=== PATIENT | female | born 1965 | race Caucasian/White ===

== ENCOUNTER 2018-01-13 11:38 | Emergency (ER) | payer SELFPAY ==
[~2018-01-13] VITALS: Ht 144.8 cm; Wt 49.0 kg
[2018-01-13 11:41] VITALS: BP 136/73; PULSE 101; RESP 16; TEMP 98.3; O2SAT 99
[2018-01-13] MEDS ORDERED: SODIUM CHLORIDE 0.9% FLUSH 10 ML FLUSH IVF PRN (12:00)
[2018-01-13] MEDS ORDERED: SODIUM CHLOR 0.9% 1000 ML INJ 1,000 ML IV ONE ×2 (12:00→13:30)
[2018-01-13] MEDS ORDERED: LANTUS2P SQ (12:06)
[2018-01-13] MEDS ORDERED: ENOX100P SQ (12:06)
[2018-01-13] MEDS ORDERED: NOVOLOGP2 SQ (12:06)
[2018-01-13] MEDS ORDERED: ALPR.5 PO (12:06)
[2018-01-13 12:46] LABS: BILIRUBIN, URINE NEG (NEG); BLOOD, URINE NEG (NEG); GLUCOSE,URINE 1000 OR GREATER mg/dL (NEG); KETONE, URINE 80 OR GREATER mg/dL (NEG); NITRITE,URINE POS (NEG); PH, URINE 5.5 (5.0-8.5); URINE COLOR YELLOW (YELLW/STRAW); URINE LEUKOCYTE ESTERASE NEG (NEG)
[2018-01-13] MEDS ORDERED: GABA300C5 PO (12:46)
--- NOTE | 2018-01-13 12:47 | PD ---
HPI Chief Complaint: Respiratory Symptoms Time Seen by Provider: 11:48 Travel History International Travel<30 days: No Contact w/Intl Traveler<30days: No Traveled to known affect area: No History of Present Illness HPI Patient is a 52 year old female, with history of PE, Diabetes, and pancreatic cancer, who comes in complaining of bilateral flank pain, cough/congestion, DKA. She says she has noticed her sugar has been elevated all week and she has not been able to control it. She says she feels like she is in DKA. She says she has pain to both flanks also for the past week and is concerned for a kidney issue. She says she is urinating more often, but denies any burning with urination. She denies fever or chills. She is on lovenox and reports compliance with her medications. Severity is moderate. 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) Family History Family Myocardial Infarction: Yes Social History Alcohol Use: Yes (very rare) Tobacco Use: Yes (2 cigs a week) Substance Use: No (denies) Allergies-Medications (Allergen,Severity, Reaction): Coded Allergies: Penicillins (Verified Allergy, Unknown, 01/13/18) Sulfa (Sulfonamide Antibiotics) (Verified Allergy, Unknown, 01/13/18) acetaminophen (Verified Allergy, Unknown, 01/13/18) haloperidol (Verified Allergy, Unknown, 01/13/18) Reported Meds & Prescriptions Reported Meds & Active Scripts Active Reported Gabapentin 300 Mg Cap 300 Mg PO QID PRN Xanax (Alprazolam) 0.5 Mg Tab 0.5 Mg PO Q8H PRN Lovenox Inj (Enoxaparin Sodium) 100 Mg/Ml Syr 100 Mg SQ BID Novolog Inj (Insulin Aspart) 1,000 Unit/10 Ml Vial 0 SQ DIRECTED Sliding Scale as directed. Lantus Inj (Insulin Glargine) 1,000 Unit/10 Ml Vial 20 Units SQ DAILY Review of Systems Except as stated in HPI: all other systems reviewed are Neg General / Constitutional: No: Fever, Chills HENT: No: Headaches, Lightheadedness Cardiovascular: No: Chest Pain or Discomfort Respiratory: Positive: Cough, Shortness of Breath Genitourinary: Positive: Frequency, No: Dysuria Musculoskeletal: No: Myalgias, Edema Skin: No Rash, No Change in Pigmentation Neurologic: No: Weakness, Dizziness Physical Exam Narrative GENERAL: Awake and alert, in no acute distress. SKIN: Focused skin assessment warm/dry. HEAD: Atraumatic. Normocephalic. EYES: Pupils equal and round. No scleral icterus. ENT: Mucous membranes pink and moist. NECK: Trachea midline. No JVD. CARDIOVASCULAR: Regular rate and rhythm. No murmur appreciated. RESPIRATORY: No accessory muscle use. Clear to auscultation. Breath sounds equal bilaterally. GASTROINTESTINAL: Abdomen soft, non-tender, nondistended. MUSCULOSKELETAL: No obvious deformities. No clubbing. No cyanosis. No edema. NEUROLOGICAL: Awake and alert. No obvious cranial nerve deficits. Motor grossly within normal limits. Normal speech. PSYCHIATRIC: Appropriate mood and affect; insight and judgment normal. Data Data Last Documented VS Vital Signs Date Time Temp Pulse Resp B/P (MAP) Pulse Ox O2 Delivery O2 Flow Rate FiO2 01/13/18 13:18 99 Room Air 01/13/18 12:51 2.00 01/13/18 11:41 98.3 101 16 136/73 (94) Orders Orders Complete Blood Count With Diff (01/13/18 11:57) Basic Metabolic Panel (Bmp) (01/13/18 11:57) Act Partial Throm Time (Ptt) (01/13/18 11:57) Prothrombin Time / Inr (Pt) (01/13/18 11:57) Troponin I (01/13/18 11:57) Iv Access Insert/Monitor (01/13/18 11:57) Ecg Monitoring (01/13/18 11:57) Oximetry (01/13/18 11:57) Oxygen Administration (01/13/18 11:57) Ct Pulmonary Angiogram (01/13/18 11:57) Sodium Chloride 0.9% Flush (Ns Flush) (01/13/18 12:00) Urinalysis - C+S If Indicated (01/13/18 11:57) Ct Abd/Pel W/O Iv Contrast (01/13/18 ) Hepatic Functional Panel (01/13/18 11:57) Beta Hydroxybutyrate (Acetone) (01/13/18 11:57) Sodium Chlor 0.9% 1000 Ml Inj (Ns 1000 M (01/13/18 12:00) Morphine Inj (Morphine Inj) (01/13/18 13:00) Urine Culture (01/13/18 12:30) Levofloxacin 500 Mg Premix Inj (Levaquin (01/13/18 13:30) Insulin Human Regular Inj (Novolin R Inj (01/13/18 13:30) Sodium Chlor 0.9% 1000 Ml Inj (Ns 1000 M (01/13/18 13:30) Potassium Chloride (Kcl) (01/13/18 13:30) Iohexol 350 Inj (Omnipaque 350 Inj) (01/13/18 14:05) Ketorolac Inj (Toradol Inj) (01/13/18 14:30) Labs Laboratory Tests Test 01/13/18 12:30 White Blood Count 14.6 TH/MM3 Red Blood Count 4.68 MIL/MM3 Hemoglobin 14.0 GM/DL Hematocrit 41.9 % Mean Corpuscular Volume 89.6 FL Mean Corpuscular Hemoglobin 30.0 PG Mean Corpuscular Hemoglobin Concent 33.4 % Red Cell Distribution Width 12.5 % Platelet Count 272 TH/MM3 Mean Platelet Volume 9.8 FL Neutrophils (%) (Auto) 74.6 % Lymphocytes (%) (Auto) 14.1 % Monocytes (%) (Auto) 8.1 % Eosinophils (%) (Auto) 1.0 % Basophils (%) (Auto) 2.2 % Neutrophils # (Auto) 10.9 TH/MM3 Lymphocytes # (Auto) 2.1 TH/MM3 Monocytes # (Auto) 1.2 TH/MM3 Eosinophils # (Auto) 0.1 TH/MM3 Basophils # (Auto) 0.3 TH/MM3 CBC Comment DIFF FINAL Differential Comment Prothrombin Time 10.9 SEC Prothromb Time International Ratio 1.1 RATIO Activated Partial Thromboplast Time 33.9 SEC Urine Collection Type CLEAN CATCH Urine Color YELLOW Urine Turbidity CLEAR Urine pH 5.5 Urine Specific [place] 1.015 Urine Protein NEG mg/dL Urine Glucose (UA) 1000 OR GREATER mg/dL Urine Ketones 80 OR GREATER mg/dL Urine Occult Blood NEG Urine Nitrite POS Urine Bilirubin NEG Urine Urobilinogen 0.2 MG/DL Urine Leukocyte Esterase NEG Urine WBC 0-2 /hpf Urine Squamous Epithelial Cells 0-5 /hpf Urine Bacteria MOD /hpf Microscopic Urinalysis Comment CULTURE INDICATED Urine Collection Time 12:30 Blood Urea Nitrogen 11 MG/DL Creatinine 0.75 MG/DL Random Glucose 407 MG/DL Total Protein 7.2 GM/DL Albumin 3.8 GM/DL Calcium Level 8.7 MG/DL Alkaline Phosphatase 82 U/L Aspartate Amino Transf (AST/SGOT) 32 U/L Alanine Aminotransferase (ALT/SGPT) 37 U/L Total Bilirubin 0.7 MG/DL Direct Bilirubin 0.2 MG/DL Sodium Level 134 MEQ/L Potassium Level 3.6 MEQ/L Chloride Level 100 MEQ/L Carbon Dioxide Level 25.3 MEQ/L Anion Gap 9 MEQ/L Estimat Glomerular Filtration Rate 82 ML/MIN Indirect Bilirubin 0.5 MG/DL Troponin I LESS THAN 0.02 NG/ML B-Hydroxybutyrate 1.36 MMOL/L [facility] Medical Decision Making Medical Screen Exam Complete: Yes Emergency Medical Condition: Yes Medical Record Reviewed: Yes Differential Diagnosis hyperglycemia vs DKA vs dehydration vs UTI vs renal stone vs pneumonia vs PE Narrative Course Patient is a 52 year old female who comes in complaining of back pain and high sugars. Her [id number] was accessed and labs obtained. Labs show a glucose of 407, however, anion gap is 9, suggesting no evidence of DKA. UA is positive for UTI. CT abd/pelvis shows no evidence of renal stone. CTA chest shows no evidence of PE. Last [address] Angiography 01/13/18 1157 Signed Impressions: Service Date/Time: Saturday, January 13, 2018 13:49 - CONCLUSION: 1. No CT evidence for pulmonary artery embolism as questioned. 2. Minimal groundglass opacities at the lung bases consistent with atelectasis. Javed Jeffries MD Abdomen/Pelvis CT 01/13/18 0000 Signed Impressions: Service Date/Time: Saturday, January 13, 2018 13:39 - CONCLUSION: 1. No evidence of renal stones or hydronephrosis. 2. Multiple surgical procedures upper abdomen about the stomach, pancreas, and gallbladder. Gibran Mann MD Given IVF, insulin, pain medicines. Given a dose of Levaquin. Discharged with a prescription for Levaquin. Advised to follow up with her doctors. Advised to return to the ED as needed for any worsening symptoms. Diagnosis Primary Impression: UTI (urinary tract infection) Qualified Codes: N30.00 - Acute cystitis without hematuria Additional Impression: Hyperglycemia Patient Instructions: Diabetic Hyperglycemia (ED), General Instructions, Urinary Tract Infection in Women (ED) Additional Instructions: Drink plenty of water. Take all of your antibiotics. Follow-up with your doctors. Return to the ED as needed for any worsening symptoms. Scripts Ketorolac (Ketorolac) 10 Mg Tab 10 MG PO Q6HR Y for PAIN, #3 TAB 0 Refills Prov: Pat Sharp MD 01/13/18 Levofloxacin (Levaquin) 500 Mg Tablet 500 MG PO DAILY for Infection for 7 Days, #7 TAB 0 Refills Prov: Pat Sharp MD 01/13/18 Disposition: 01 DISCHARGE HOME Condition: Stable Pat Sharp MD January 13, 2018 12:47
[2018-01-13 12:53] LABS: AUTOMATED NEUTROPHIL # 10.9 TH/MM3 (1.8-7.7); BASOPHIL # 0.3 TH/MM3 (0-0.2); BASOPHIL % 2.2 % (0.0-2.0); EOSINOPHIL # 0.1 TH/MM3 (0-0.4); HEMATOCRIT 41.9 % (35.0-46.0); LYMPH % 14.1 % (9.0-44.0); LYMPHOCYTE # 2.1 TH/MM3 (1.0-4.8); MEAN CELL VOLUME 89.6 FL (80.0-100.0); MEAN CORPUSCULAR HGB CONC 33.4 % (32.0-36.0); MEAN PLATELET VOLUME 9.8 FL (7.0-11.0); MONO % 8.1 % (0.0-8.0); MONOCYTE # 1.2 TH/MM3 (0-0.9); NEUT % 74.6 % (16.0-70.0); PLATELET COUNT 272 TH/MM3 (150-450); RED BLOOD COUNT 4.68 MIL/MM3 (4.00-5.30); RED CELL DISTRIBUTION WIDTH 12.5 % (11.6-17.2); WHITE BLOOD COUNT 14.6 TH/MM3 (4.0-11.0)
[2018-01-13 12:54] LABS: CHLORIDE 100 MEQ/L (98-107); SODIUM (NA) 134 MEQ/L (136-145)
[2018-01-13 12:57] LABS: BACTERIA, URINE MOD /hpf; SQUAMOUS EPITHELIAL CELL URINE 0-5 /hpf (0-5); WBC, URINE 0-2 /hpf (0-5)
[2018-01-13 12:58] LABS: ALBUMIN 3.8 GM/DL (3.4-5.0); CALCIUM 8.7 MG/DL (8.5-10.1)
[2018-01-13 13:00] VITALS: BP 130/71; PULSE 92; RESP 20; O2SAT 99
[2018-01-13 13:00] LABS: INTERNATIONAL NORMALIZED RATIO 1.1 RATIO; PROTHROMBIN TIME - PATIENT 10.9 SEC (9.8-11.6)
[2018-01-13] MEDS ORDERED: MORPHINE SULFATE 4 MG/ML INJ IV PUSH ONE (13:00)
[2018-01-13 13:18] VITALS: O2SAT 99
[2018-01-13 13:25] LABS: ALKALINE PHOSPHATASE 82 U/L (45-117); ALT (GPT) 37 U/L (10-53); AST (GOT) 32 U/L (15-37); BICARBONATE 25.3 MEQ/L (21.0-32.0); BLOOD UREA NITROGEN 11 MG/DL (7-18); CREATININE 0.75 MG/DL (0.50-1.00); DIRECT BILIRUBIN ADULT 0.2 MG/DL (0.0-0.2); GLOMERULAR FILTRATION RATE 82 ML/MIN (>89); GLUCOSE,RANDOM 407 MG/DL (74-106); INDIRECT BILIRUBIN 0.5 MG/DL (0.0-0.8); TOTAL BILIRUBIN ADULT 0.7 MG/DL (0.2-1.0); TOTAL PROTEIN 7.2 GM/DL (6.4-8.2); TROPONIN I LESS THAN 0.02 NG/ML (0.02-0.05)
[2018-01-13] MEDS ORDERED: INSULIN HUMAN REGULAR 1,000 UNITS/10 ML VIAL IV PUSH ONE (13:30)
[2018-01-13] MEDS ORDERED: LEVOFLOXACIN 500 MG PREMIX INJ 100 ML IV ONE (13:30)
[2018-01-13] MEDS ORDERED: POTASSIUM CHLORIDE 10 MEQ CONTROLLED RELEASE TAB PO ONE (13:30)
--- NOTE | 2018-01-13 14:00 | RADRPT ---
EXAM DATE/TIME: 01/13/2018 13:39 [facility] COMPARISON: No previous studies available for comparison. INDICATIONS : Bilateral flank pain today. ORAL CONTRAST: No oral contrast ingested. RADIATION DOSE: 4.4 CTDIvol (mGy) MEDICAL HISTORY : Stroke. Carcinoma, pancreas. SURGICAL HISTORY : Cholecystectomy. spleen surgery, duodenum surgery, pancreas surgery ENCOUNTER: Initial ACUITY: 1 day PAIN SCALE: 7/10 LOCATION: Bilateral flank TECHNIQUE: Renal colic protocol. Volumetric scanning of the abdomen and pelvis was performed. Using automated exposure control and adjustment of the mA and/or kV according to patient size, radiation dose was kep t as low as reasonably achievable to obtain optimal diagnostic quality images. DICOM format image da ta is available electronically for review and comparison. FINDINGS: Right side: No calcified renal stones, ureteral stones, or evidence of hydronephrosis. Left side: No calcified renal stones, ureteral stones, or evidence of hydronephrosis. Bladder: No margins. No calcifications within the lumen. Other: Multiple hemoclips in the right upper quadrant. Cholecystectomy with biliary gas in the left lobe. No fluid in the anterior pararenal space stopped splenectomy. Enlarged uterus without calcifications. IVC filter. No evidence of free fluid. The v isualized lower lungs are clear. CONCLUSION: 1. No evidence of renal stones or hydronephrosis. 2. Multiple surgical procedures upper abdomen about the stomach, pancreas, and gallbladder. Gibran Mann MD on January 13, 2018 at 13:55 Board Certified Radiologist. This report was verified electronically.
[2018-01-13] MEDS ORDERED: IOHEXOL 350 MG/ML 10 ML VIAL (for RAD DIAG) IVCONTRAST ONE (14:05)
--- NOTE | 2018-01-13 14:14 | RADRPT ---
EXAM DATE/TIME: 01/13/2018 13:49 [facility] COMPARISON: No previous studies available for comparison. INDICATIONS : Shortness of breath today. IV CONTRAST: 51 cc Omnipaque 350 (iohexol) IV RADIATION DOSE: 5.58 CTDIvol (mGy) MEDICAL HISTORY : Stroke. Deep venous thrombosis. pulmonary embolism SURGICAL HISTORY : Cholecystectomy. spleen surgery, duodenum surgery, pancreas surgery ENCOUNTER: Initial ACUITY: 1 day PAIN SCALE: 0/10 LOCATION: Bilateral chest TECHNIQUE: Volumetric scanning of the chest was performed using a pulmonary embolism protocol MIP images were re constructed. Using automated exposure control and adjustment of the mA and/or kV according to patien t size, radiation dose was kept as low as reasonably achievable to obtain optimal diagnostic quality images. DICOM format image data is available electronically for review and comparison. Follow-up recommendations for detected pulmonary nodules are based at a minimum on nodule size and pa tient risk factors according to Fleischner Society Guidelines. FINDINGS: PULMONARY ARTERIES: No filling defects are seen in the pulmonary arteries through the segmental level. LUNGS: Minimal groundglass opacities at the lung bases. PLEURAE: There is no pleural thickening or pleural effusion. MEDIASTINUM: Right IJ [id number] in place. There is good visualization of the great vessels of the middle media stinum. No evidence of mediastinal or hilar adenopathy/mass. MUSCULOSKELETAL: Within normal limits for patient age. Bilateral decompressed breast augmentation. MISCELLANEOUS: His upper abdomen demonstrates extensive postsurgical features potentially of Whipple procedure. Mild pneumobilia within expected range. CONCLUSION: 1. No CT evidence for pulmonary artery embolism as questioned. 2. Minimal groundglass opacities at the lung bases consistent with atelectasis. Javed Jeffries MD on January 13, 2018 at 14:07 Board Certified Radiologist. This report was verified electronically.
[2018-01-13 14:25] VITALS: BP 108/69; PULSE 62; RESP 20; O2SAT 99
[2018-01-13] MEDS ORDERED: KETO10 PO (14:28)
[2018-01-13] MEDS ORDERED: LEVA500T33 PO (14:28)
[2018-01-13] MEDS ORDERED: KETOROLAC TROMETHAMINE 30 MG/ML (IVP) VIAL IV PUSH ONE (14:30)
== END 2018-01-13 16:27 | disposition home or self-care (01) ==
LOC: PHED 11:38
DX: N30.00 Acute cystitis without hematuria (principal); E11.65 Type 2 diabetes mellitus with hyperglycemia; B96.1 Klebsiella pneumoniae [K. pneumoniae] as the cause of diseases classified elsewhere; Z79.01 Long term (current) use of anticoagulants; Z86.73 Personal history of transient ischemic attack (TIA), and cerebral infarction without residual deficits
CPT/HCPCS: 71275; 74176; 80048; 80076; 81001; 82010; 84484; 85025; 85610; 85730; 87077; 87086; 87186; 96361; 96365; 96375; 99284; J1642; J1815; J1885; J1956; J2270; J7030; Q9967

== ENCOUNTER 2018-01-19 11:38 | Emergency (ER) | payer SELFPAY ==
[~2018-01-19] VITALS: Ht 144.8 cm; Wt 50.4 kg
[~2018-01-19 11:38] MED LIST: ALPR.5 PO; ENOX100P SQ; GABA300C5 PO; KETO10 PO; LANTUS2P SQ; LEVA500T33 PO; NOVOLOGP2 SQ
[2018-01-19 11:42] VITALS: BP 130/72; PULSE 86; RESP 18; TEMP 98.5; O2SAT 99
[2018-01-19] MEDS ORDERED: HYDROmorphone HCL PF 2 MG/ML VIAL IV PUSH ONE ×2 (12:15→13:45)
[2018-01-19] MEDS ORDERED: ONDANSETRON HCL 4 MG/2 ML VIAL IV PUSH ONE (12:15)
--- NOTE | 2018-01-19 12:19 | PD ---
HPI Chief Complaint: Pain: Acute or Chronic Time Seen by Provider: 12:02 Travel History International Travel<30 days: No Contact w/Intl Traveler<30days: No Traveled to known affect area: No History of Present Illness HPI This 52-year-old female is complaining of pain in her back. She is having pain in the back of the abdomen and thorax for over a week. Pain is aggravated by certain movements. She says it is quite severe. She was here for evaluation of this pain a few days ago. At that time she had a CT a of the chest which was negative for PE and a CT of the abdomen and pelvis which was also negative. Lab work showed a blood sugar of 400. She has a history of pancreatic cancer since 2003. 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 She does see an oncologist on a regular basis and had a recent PET scan. She was told recently that she had stage IV pancreatic cancer but she believes it stabilized. She has not had any chemotherapy for some time. When she was here the other day her urine did have bacteria and she was placed on Levaquin. Her urine from that visit has grown greater than 100,000 units of E. coli. It is sensitive to all antibiotics except ciprofloxacin. She is allergic to Bactrim. 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) Social History Alcohol Use: Yes (very rare) Tobacco Use: Yes (2 cigs a week) Substance Use: No (denies) Allergies-Medications (Allergen,Severity, Reaction): Coded Allergies: Penicillins (Verified Allergy, Unknown, 01/19/18) Sulfa (Sulfonamide Antibiotics) (Verified Allergy, Unknown, 01/19/18) acetaminophen (Verified Allergy, Unknown, 01/19/18) haloperidol (Verified Allergy, Unknown, 01/19/18) Reported Meds & Prescriptions Reported Meds & Active Scripts Active Levaquin (Levofloxacin) 500 Mg Tablet 500 Mg PO DAILY 7 Days Reported Gabapentin 300 Mg Cap 300 Mg PO QID PRN Xanax (Alprazolam) 0.5 Mg Tab 0.5 Mg PO Q8H PRN Lovenox Inj (Enoxaparin Sodium) 100 Mg/Ml Syr 100 Mg SQ BID Novolog Inj (Insulin Aspart) 1,000 Unit/10 Ml Vial 0 SQ DIRECTED Sliding Scale as directed. Lantus Inj (Insulin Glargine) 1,000 Unit/10 Ml Vial 20 Units SQ DAILY Review of Systems Except as stated in HPI: all other systems reviewed are Neg General / Constitutional: No: Fever, Chills Eyes: No: Diploplia, Blurred Vision HENT: No: Headaches Cardiovascular: No: Chest Pain or Discomfort, Palpitations Respiratory: No: Cough, Shortness of Breath Gastrointestinal: No: Diarrhea Genitourinary: Positive: Frequency Musculoskeletal: Positive: Myalgias, No: Arthralgias Skin: No Rash, No Itching Neurologic: No: Weakness, Dizziness Psychiatric: No: Anxiety Hematologic/Lymphatic: No: Easy Bruising Physical Exam Narrative GENERAL: Well-developed female SKIN: Focused skin assessment warm/dry. HEAD: Atraumatic. Normocephalic. EYES: Pupils equal and round. No scleral icterus. No injection or drainage. ENT: No nasal bleeding or discharge. Mucous membranes pink and moist. NECK: Trachea midline. No JVD. CARDIOVASCULAR: Regular rate and rhythm. No murmur appreciated. RESPIRATORY: No accessory muscle use. Clear to auscultation. Breath sounds equal bilaterally. GASTROINTESTINAL: Abdomen soft, non-tender, nondistended. Hepatic and splenic margins not palpable. Some tenderness in the back on both sides of the spinal column. There is no mass palpable MUSCULOSKELETAL: No obvious deformities. No clubbing. No cyanosis. No edema. NEUROLOGICAL: Awake and alert. No obvious cranial nerve deficits. Motor grossly within normal limits. Normal speech. PSYCHIATRIC: Appropriate mood and affect; insight and judgment normal. Data Data Last Documented VS Vital Signs Date Time Temp Pulse Resp B/P (MAP) Pulse Ox O2 Delivery O2 Flow Rate FiO2 01/19/18 13:10 78 16 119/76 (90) 98 Room Air 01/19/18 11:42 98.5 Orders Orders Complete Blood Count With Diff (01/19/18 12:12) Basic Metabolic Panel (Bmp) (01/19/18 12:12) Urinalysis - C+S If Indicated (01/19/18 12:12) Ondansetron Inj (Zofran Inj) (01/19/18 12:15) Hydromorphone Pf Inj (Dilaudid Pf Inj) (01/19/18 12:15) Urine Culture (01/19/18 13:00) Insulin Human Regular Inj (Novolin R Inj (01/19/18 13:45) Hydromorphone Pf Inj (Dilaudid Pf Inj) (01/19/18 13:45) Labs Laboratory Tests Test 01/19/18 13:00 White Blood Count 14.4 TH/MM3 Red Blood Count 4.58 MIL/MM3 Hemoglobin 13.1 GM/DL Hematocrit 40.8 % Mean Corpuscular Volume 89.3 FL Mean Corpuscular Hemoglobin 28.6 PG Mean Corpuscular Hemoglobin Concent 32.0 % Red Cell Distribution Width 12.6 % Platelet Count 234 TH/MM3 Mean Platelet Volume 10.0 FL Neutrophils (%) (Auto) 76.2 % Lymphocytes (%) (Auto) 17.0 % Monocytes (%) (Auto) 5.2 % Eosinophils (%) (Auto) 0.4 % Basophils (%) (Auto) 1.2 % Neutrophils # (Auto) 11.0 TH/MM3 Lymphocytes # (Auto) 2.4 TH/MM3 Monocytes # (Auto) 0.7 TH/MM3 Eosinophils # (Auto) 0.1 TH/MM3 Basophils # (Auto) 0.2 TH/MM3 CBC Comment AUTO DIFF Differential Comment AUTO DIFF CONFIRMED Platelet Estimate NORMAL Platelet Morphology Comment NORMAL Red Cell Morphology Comment NORMAL Urine Collection Type CLEAN CATCH Urine Color YELLOW Urine Turbidity CLEAR Urine pH 6.5 Urine Specific [place] LESS/EQUAL 1.005 Urine Protein NEG mg/dL Urine Glucose (UA) 1000 OR GREATER mg/dL Urine Ketones NEG mg/dL Urine Occult Blood NEG Urine Nitrite NEG Urine Bilirubin NEG Urine Urobilinogen 0.2 MG/DL Urine Leukocyte Esterase NEG Urine Squamous Epithelial Cells 0-5 /hpf Urine Bacteria MOD /hpf Microscopic Urinalysis Comment CULTURE INDICATED Urine Collection Time 1300 Blood Urea Nitrogen 4 MG/DL Creatinine 0.72 MG/DL Random Glucose 365 MG/DL Calcium Level 9.2 MG/DL Sodium Level 134 MEQ/L Potassium Level 4.1 MEQ/L Chloride Level 101 MEQ/L Carbon Dioxide Level 27.1 MEQ/L Anion Gap 6 MEQ/L Estimat Glomerular Filtration Rate 86 ML/MIN MDM Medical Decision Making Medical Screen Exam Complete: Yes Emergency Medical Condition: Yes Medical Record Reviewed: Yes Differential Diagnosis This lady who has been told she has stage IV pancreatic cancer is now having some pain in the back. She does have a UTI by culture and has not been on an effective antibiotic. I will change her to Keflex. We will also prescribe some pain medicine I am not convinced that this pain is secondary just to the urinary tract infection and I have encouraged her to follow-up with her oncologist Narrative Course Patient has been given some Dilaudid and is still having pain. I will repeat the dose. She will be changed to Keflex and I will prescribe some oral pain medication. Diagnosis Primary Impression: Back pain Additional Impression: UTI (urinary tract infection) Scripts Oxycodone (Oxycodone) 10 Mg Tab 10 MG PO Q4H Y for PAIN, #12 TAB 0 Refills Prov: Rashaun Walton MD 01/19/18 Nitrofurantoin Monohydrate Macrocrystals (Macrobid) 100 Mg Cap 100 MG PO BID for Infection for 10 Days, #20 CAP 0 Refills Prov: Rashaun Walton MD 01/19/18 Disposition: 01 DISCHARGE HOME Condition: Stable Rashaun Walton MD January 19, 2018 12:19
[2018-01-19 12:30] VITALS: BP 141/90; PULSE 87; RESP 16; O2SAT 99
[2018-01-19 13:09] LABS: BASOPHIL # 0.2 TH/MM3 (0-0.2); BASOPHIL % 1.2 % (0.0-2.0); EOSINOPHIL # 0.1 TH/MM3 (0-0.4); EOSINOPHIL % 0.4 % (0.0-4.0); HEMATOCRIT 40.8 % (35.0-46.0); HEMOGLOBIN 13.1 GM/DL (11.6-15.3); LYMPHOCYTE # 2.4 TH/MM3 (1.0-4.8); MEAN CELL VOLUME 89.3 FL (80.0-100.0); MEAN CORPUSCULAR HEMOGLOBIN 28.6 PG (27.0-34.0); MONO % 5.2 % (0.0-8.0); MONOCYTE # 0.7 TH/MM3 (0-0.9); NEUT % 76.2 % (16.0-70.0); PLATELET COUNT 234 TH/MM3 (150-450); RED BLOOD COUNT 4.58 MIL/MM3 (4.00-5.30); RED CELL DISTRIBUTION WIDTH 12.6 % (11.6-17.2); WHITE BLOOD COUNT 14.4 TH/MM3 (4.0-11.0)
[2018-01-19 13:10] VITALS: BP 119/76; PULSE 78; RESP 16; O2SAT 98
[2018-01-19 13:10] LABS: BILIRUBIN, URINE NEG (NEG); BLOOD, URINE NEG (NEG); GLUCOSE,URINE 1000 OR GREATER mg/dL (NEG); KETONE, URINE NEG (NEG); NITRITE,URINE NEG (NEG); PH, URINE 6.5 (5.0-8.5); URINE COLOR YELLOW (YELLW/STRAW); URINE LEUKOCYTE ESTERASE NEG (NEG)
[2018-01-19 13:16] LABS: BACTERIA, URINE MOD /hpf; SQUAMOUS EPITHELIAL CELL URINE 0-5 /hpf (0-5)
[2018-01-19 13:19] LABS: BICARBONATE 27.1 MEQ/L (21.0-32.0); CALCIUM 9.2 MG/DL (8.5-10.1)
[2018-01-19 13:23] LABS: CREATININE 0.72 MG/DL (0.50-1.00)
[2018-01-19] MEDS ORDERED: INSULIN HUMAN REGULAR 1,000 UNITS/10 ML VIAL SQ ONE (13:45)
[2018-01-19] MEDS ORDERED: OXYC-395 PO (13:47)
[2018-01-19] MEDS ORDERED: MACR100C2 PO (13:47)
[2018-01-19 14:00] VITALS: BP 161/66; PULSE 86; RESP 16; O2SAT 98
[2018-01-19 14:30] VITALS: BP 116/70; PULSE 73; RESP 16; O2SAT 99
== END 2018-01-19 14:32 | disposition home or self-care (01) ==
LOC: PHED 11:38
DX: M54.9 Dorsalgia, unspecified (principal); N39.0 Urinary tract infection, site not specified; B96.20 Unspecified Escherichia coli [E. coli] as the cause of diseases classified elsewhere; C25.9 Malignant neoplasm of pancreas, unspecified; F41.9 Anxiety disorder, unspecified; E11.9 Type 2 diabetes mellitus without complications; Z86.718 Personal history of other venous thrombosis and embolism; Z86.73 Personal history of transient ischemic attack (TIA), and cerebral infarction without residual deficits
CPT/HCPCS: 80048; 81001; 85025; 87077; 87086; 87186; 96372; 96374; 96375; 96376; 99284; J1170; J1642; J1815; J2405